=== PATIENT | male | born 1960 | race Caucasian/White ===

== ENCOUNTER 2019-11-13 06:09 | Inpatient (IN) ==
[2019-11-13] MEDS ORDERED: *HR* Propofol 200 MG/20 ML VIAL IVP ONE (06:43)
[2019-11-13] MEDS ORDERED: *HR* FentaNYL (PF) 1,000 MCG/20 ML VIAL ONE (06:44)
[2019-11-13] MEDS ORDERED: *HR* Midazolam HCl 5 MG/5 ML VIAL IVP ONE (06:44)
[2019-11-13] MEDS ORDERED: Famotidine 20 MG/2 ML VIAL ONE (06:52)
[2019-11-13] MEDS ORDERED: *HR* PHENYLEPHRINE 1,000 MCG/10 ML SYRINGE IVP ONE ×2 (06:52→11:31)
[2019-11-13] MEDS ORDERED: Dexamethasone 4 MG/ML VIAL ONE (06:52)
[2019-11-13] MEDS ORDERED: *HR* Magnesium Sulfate 1 GM/2 ML VIAL ONE (06:52)
[2019-11-13] MEDS ORDERED: Lidocaine 2% Syringe 100 MG/5 ML ONE (06:53)
[2019-11-13] MEDS ORDERED: Tranexamic Acid 1,000 MG/10 ML VIAL ONE (07:03)
[2019-11-13] MEDS ORDERED: CeFAZolin Syr 2,000MG/20 ML 2,000 MG/20 ML SYRINGE IVPB ONE (07:06)
[2019-11-13] MEDS ORDERED: Albuterol 2.5 MG/3 ML NEBULIZER IH ONE (07:33)
[2019-11-13] MEDS ORDERED: Dextrose 50 % in Water (Vial) 30 ML, Sodium Bicarbonate 20 MEQ, Lidocaine 1% 5 ML, Insu... TH ONE ×3 (07:45)
[2019-11-13] MEDS ORDERED: Dextrose 50 % in Water (Vial) 30 ML, Sodium Bicarbonate 20 MEQ, Potassium Chloride 15 M... TH ONE (07:45)
[2019-11-13] MEDS ORDERED: Heparin 15,000 UNIT in 0.9 % Sodium Chloride 500 ML IV ONE (07:45)
[2019-11-13] MEDS ORDERED: Ringers Solution, Lactated 1,000 ML IVC SCH (07:45)
[2019-11-13] MEDS ORDERED: Insulin Human Regular 100 UNIT in 0.9 % Sodium Chloride 100 ML IV PRN (07:45)
[2019-11-13] MEDS ORDERED: Norepinephrine 4 MG in 0.9 % Sodium Chloride 250 ML IVC PRN (07:45)
[2019-11-13 08:06] LABS: ABG Base Excess -1 mEq/L (-2 to 3); ABG Chloride 102 mEq/L (98-107); ABG Glucose 107 mg/dL (60-95); ABG HCO3 27 mEq/L (21-27); ABG Oxygen Saturation 100 % (95-98); ABG PCO2 55 mmHg (35-45); ABG PH 7.29 pH Units (7.32-7.45); ABG PO2 216 mmHg (85-104); ABG TCO2 28 mEq/L (20-26)
[2019-11-13] MEDS ORDERED: *HR* Heparin 10,000 UNIT/10 ML VIAL IV ONE (08:12)
[2019-11-13] MEDS ORDERED: *HR* Magnesium Sulfate 2 GM/50 ML PIGGYBACK IVPB ONE (08:12)
[2019-11-13] MEDS ORDERED: Tranexamic Acid 1,000 MG/10 ML VIAL IVP ONE (08:12)
[2019-11-13] MEDS ORDERED: *HR* Phenylephrine 10 MG/ML VIAL IVC ONE (08:12)
[2019-11-13] MEDS ORDERED: Albumin Human 25% 25 GM/100 ML IV.SOLN IV ONE (08:12)
[2019-11-13] MEDS ORDERED: Mannitol 25% vial 12.5 GM/50 ML VIAL IVP ONE (08:12)
[2019-11-13] MEDS ORDERED: Lidocaine 2% Syringe 100 MG/5 ML IV ONE (08:12)
[2019-11-13] MEDS ORDERED: Heparin 1,000 UNITS/500 mL IV.SOLN IVC ONE (08:12)
[2019-11-13] MEDS ORDERED: D5% in Water 250 ML IV BAG IV ONE (08:12)
[2019-11-13] MEDS ORDERED: *HR* Rocuronium Bromide 50 MG/5 ML VIAL ONE ×3 (08:56→09:21)
[2019-11-13] MEDS ORDERED: Chlorhexidine Rinse 15 ML MOUTHWASH MM SCH (09:00)
[2019-11-13 09:22] LABS: ABG Base Excess -3 mEq/L (-2 to 3); ABG Chloride 105 mEq/L (98-107); ABG Glucose 109 mg/dL (60-95); ABG HCO3 23 mEq/L (21-27); ABG Ionized Calcium 1.18 mmol/L (1.15-1.35); ABG Oxygen Saturation 99 % (95-98); ABG PCO2 46 mmHg (35-45); ABG PH 7.31 pH Units (7.32-7.45); ABG PO2 133 mmHg (85-104); ABG TCO2 25 mEq/L (20-26)
[2019-11-13] MEDS ORDERED: Protamine Sulfate 250 MG/25 ML VIAL IVP ONE (09:33)
[2019-11-13] MEDS ORDERED: Calcium Gluconate 1,000 MG/10 ML VIAL ONE (09:33)
[2019-11-13 10:25] LABS: ABG Base Excess 0 mEq/L (-2 to 3); ABG Chloride 102 mEq/L (98-107); ABG Glucose 137 mg/dL (60-95); ABG HCO3 25 mEq/L (21-27); ABG Ionized Calcium 1.14 mmol/L (1.15-1.35); ABG Oxygen Saturation 100 % (95-98); ABG PCO2 38 mmHg (35-45); ABG PH 7.41 pH Units (7.32-7.45); ABG PO2 444 mmHg (85-104); ABG TCO2 26 mEq/L (20-26)
[2019-11-13] MEDS ORDERED: Albumin Human 5% 50.0 GM/1,000 ML VIAL ONE (11:00)
[2019-11-13] MEDS ORDERED: 0.9 % Sodium Chloride 500 ML ONE (11:00)
[2019-11-13 11:08] LABS: ABG Base Excess 0 mEq/L (-2 to 3); ABG Chloride 101 mEq/L (98-107); ABG Glucose 141 mg/dL (60-95); ABG HCO3 25 mEq/L (21-27); ABG Ionized Calcium 1.16 mmol/L (1.15-1.35); ABG Oxygen Saturation 100 % (95-98); ABG PCO2 42 mmHg (35-45); ABG PH 7.39 pH Units (7.32-7.45); ABG PO2 351 mmHg (85-104); ABG TCO2 27 mEq/L (20-26)
[2019-11-13] MEDS ORDERED: Ondansetron 4 MG/2 ML VIAL ONE (11:49)
[2019-11-13 11:53] LABS: ABG Base Excess -3 mEq/L (-2 to 3); ABG Chloride 104 mEq/L (98-107); ABG Glucose 128 mg/dL (60-95); ABG HCO3 24 mEq/L (21-27); ABG Ionized Calcium 1.27 mmol/L (1.15-1.35); ABG Oxygen Saturation 98 % (95-98); ABG PCO2 54 mmHg (35-45); ABG PH 7.27 pH Units (7.32-7.45); ABG PO2 123 mmHg (85-104); ABG TCO2 26 mEq/L (20-26)
[2019-11-13] MEDS ORDERED: Acetaminophen 650 MG RECTAL SUPP RC PRN (12:27)
[2019-11-13] MEDS ORDERED: Ondansetron 4 MG/2 ML VIAL IVP PRN (12:27)
[2019-11-13] MEDS ORDERED: *HR* Dextrose 50 % in Water (Syg) 50 ML SYRINGE IVP PRN (12:27)
[2019-11-13] MEDS ORDERED: Acetaminophen 325 MG TABLET PO PRN (12:27)
[2019-11-13] MEDS ORDERED: Calcium Gluconate 1gm/50mL 1 GM/50 ML BAG IVPB PRN (12:27)
[2019-11-13] MEDS ORDERED: Insulin Regular, Human 100 UNIT/ML IV PRN (12:27)
[2019-11-13] MEDS ORDERED: Potassium Chloride 40 MEQ/200 ML BAG IVPB PRN (12:27)
[2019-11-13] MEDS ORDERED: Naloxone 0.4 MG/ML INJ IVP PRN (12:27)
[2019-11-13] MEDS ORDERED: 0.9 % Sodium Chloride w KCl 20 MEQ/1,000 ML MLS IVC SCH (12:30)
[2019-11-13] MEDS: Norepinephrine 4 MG in 0.9 % Sodium Chloride 250 ML IVC SCH (13:05)
[2019-11-13] MEDS: Insulin Human Regular 100 UNIT in 0.9 % Sodium Chloride 100 ML IVC SCH (13:20)
[2019-11-13 13:22] LABS: ABG Base Excess 1 mEq/L (-2 to 3); ABG HCO3 28 mEq/L (21-27); ABG Oxygen Saturation 94 % (95-98); ABG PCO2 51 mmHg (35-45); ABG PH 7.34 pH Units (7.32-7.45); ABG PO2 77 mmHg (85-104); ABG TCO2 29 mEq/L (20-26); Blood Gas Modality VC; Blood Gas VT 600 cc
[2019-11-13 13:35] LABS: Basophils # 0.1 K/mcL (0.0-0.2); Basophils % 0.5 %; Eosinophils # 0.2 K/mcL (0.0-0.6); Hematocrit 35.8 % (37.5-50.1); Hemoglobin 12.5 g/dL (12.9-16.9); Immature Granulocytes % 1.2 % (0-4); Lymphocytes # 1.8 K/mcL (0.6-4.6); Lymphocytes % 12.2 %; Mean Corpuscular HGB Conc 34.9 g/dL (31.6-35.5); Mean Corpuscular Hemoglobin 31.7 pg (28.0-33.3); Mean Corpuscular Volume 90.9 fL (83.0-100.0); Monocytes % 6.9 %; Neutrophils # 11.8 K/mcL (1.6-8.9); Platelet Count 139 K/mcL (140-400); Red Blood Count 3.94 M/mcL (4.19-5.50); Red Cell Distribution Width 13.4 % (11.5-14.5); Segmented Neutrophils % 78.2 %
[2019-11-13 13:39] LABS: White Blood Count 15.1 K/mcL (4.3-11.1)
[2019-11-13] MEDS: niCARdipine 20 MG in 0.9 % Sodium Chloride 192 ML IVC SCH (13:40)
[2019-11-13 13:47] LABS: INR 1.2
[2019-11-13 13:50] LABS: Activated Partial Thrombo Time 33.6 Seconds (26.0-36.0)
[2019-11-13 13:52] LABS: BUN/Creatinine Ratio 13 (6-26); Blood Urea Nitrogen 13 mg/dL (8-23); Calcium 8.6 mg/dL (8.6-10.3); Carbon Dioxide 26 mEq/L (23-29); Chloride 109 mEq/L (98-107); Glucose 154 mg/dL (70-105); Magnesium 2.7 mg/dL (1.6-2.6); Osmolality,Calculated 291 (280-300); Potassium 3.9 mEq/L (3.5-5.1); Sodium 139 mEq/L (136-145); eGFR For African Americans > 60 (> 60); eGFR For Non-African Americans > 60 (> 60)
[2019-11-13 13:56] LABS: Prothrombin Time 13.6 Seconds (9.4-12.1)
[2019-11-13] MEDS: Pantoprazole 40 MG VIAL IVP SCH (13:58)
[2019-11-13] MEDS: *HR* FentaNYL (PF) 100 MCG/2 ML VIAL IVP PRN ×2 (14:01→16:53)
[2019-11-13 14:44] LABS: Estimated Average Glucose 114 mg/dl
[2019-11-13] MEDS: *HR* OxyCODONE/APAP 5/325 TABLET PO PRN ×2 (15:54→21:23)
[2019-11-13 16:38] LABS: ABG Base Excess -2 mEq/L (-2 to 3); ABG HCO3 26 mEq/L (21-27); ABG Oxygen Saturation 97 % (95-98); ABG PCO2 53 mmHg (35-45); ABG PH 7.29 pH Units (7.32-7.45); ABG PO2 100 mmHg (85-104); ABG TCO2 27 mEq/L (20-26); Blood Gas Modality CPAP/PS; Blood Gas Pressure Support 10 cm H2O
[2019-11-13] MEDS: Metoclopramide 10 MG/2 ML VIAL IVP SCH ×2 (17:35→23:25)
[2019-11-13] MEDS: Ketorolac 15 MG/ML VIAL IVP SCH ×2 (17:35→23:25)
[2019-11-13 18:36] LABS: ABG Base Excess -3 mEq/L (-2 to 3); ABG HCO3 25 mEq/L (21-27); ABG Oxygen Saturation 91 % (95-98); ABG PCO2 52 mmHg (35-45); ABG PH 7.28 pH Units (7.32-7.45); ABG PO2 69 mmHg (85-104); ABG TCO2 26 mEq/L (20-26)
[2019-11-13] MEDS: Chlorhexidine Rinse 15 ML MOUTHWASH MM SCH (21:24)
[2019-11-14] MEDS: *HR* FentaNYL (PF) 100 MCG/2 ML VIAL IVP PRN (04:15)
[2019-11-14] MEDS: *HR* OxyCODONE/APAP 5/325 TABLET PO PRN ×5 (04:36→23:20)
[2019-11-14 04:39] LABS: Basophils % 0.2 %; Hematocrit 39.7 % (37.5-50.1); Immature Granulocytes % 0.6 % (0-4); Lymphocytes # 2.1 K/mcL (0.6-4.6); Lymphocytes % 10.5 %; Mean Corpuscular HGB Conc 35.3 g/dL (31.6-35.5); Mean Corpuscular Hemoglobin 31.9 pg (28.0-33.3); Mean Corpuscular Volume 90.4 fL (83.0-100.0); Mean Platelet Volume 11.4 fL (9.4-12.4); Monocytes # 2.1 K/mcL (0.0-1.3); Monocytes % 10.5 %; Platelet Count 147 K/mcL (140-400); Red Blood Count 4.39 M/mcL (4.19-5.50); Red Cell Distribution Width 14.1 % (11.5-14.5); Segmented Neutrophils % 78.2 %; White Blood Count 20.4 K/mcL (4.3-11.1)
[2019-11-14 04:46] LABS: INR 1.1; Prothrombin Time 12.7 Seconds (9.4-12.1)
[2019-11-14 04:58] LABS: BUN/Creatinine Ratio 19 (6-26); Blood Urea Nitrogen 21 mg/dL (8-23); Calcium 8.8 mg/dL (8.6-10.3); Carbon Dioxide 23 mEq/L (23-29); Chloride 105 mEq/L (98-107); Glucose 149 mg/dL (70-105); Magnesium 2.2 mg/dL (1.6-2.6); Osmolality,Calculated 292 (280-300); Potassium 4.7 mEq/L (3.5-5.1); Sodium 138 mEq/L (136-145); eGFR For African Americans > 60 (> 60); eGFR For Non-African Americans > 60 (> 60)
[2019-11-14] MEDS: Metoclopramide 10 MG/2 ML VIAL IVP SCH ×4 (05:03→23:16)
[2019-11-14] MEDS: Ketorolac 15 MG/ML VIAL IVP SCH ×4 (05:04→23:16)
[2019-11-14 05:22] LABS: ABG Base Excess -4 mEq/L (-2 to 3); ABG HCO3 22 mEq/L (21-27); ABG Oxygen Saturation 91 % (95-98); ABG PCO2 39 mmHg (35-45); ABG PH 7.35 pH Units (7.32-7.45); ABG PO2 63 mmHg (85-104); ABG TCO2 23 mEq/L (20-26); Blood Gas Modality 15LPM
[2019-11-14] MEDS ORDERED: Aspirin 81 MG TAB.CHEW PO ONE (06:00)
[2019-11-14] MEDS: Furosemide 20 MG/2 ML VIAL IVP SCH ×2 (08:58→17:15)
[2019-11-14] MEDS: Pantoprazole 40 MG VIAL IVP SCH (08:58)
[2019-11-14] MEDS: Chlorhexidine Rinse 15 ML MOUTHWASH MM SCH ×2 (08:58→19:36)
[2019-11-14] MEDS: Aspirin Enteric Coated 81 MG Tablet PO SCH (08:58)
[2019-11-14] MEDS ORDERED: *HR* LORazepam 2 MG/ML VIAL IVP PRN (09:03)
[2019-11-14] MEDS ORDERED: *HR* FentaNYL (PF) 100 MCG/2 ML VIAL IVP PRN (09:04)
[2019-11-14] MEDS: niCARdipine 20 MG in 0.9 % Sodium Chloride 192 ML IVC SCH (13:21)
[2019-11-14] MEDS: Norepinephrine 4 MG in 0.9 % Sodium Chloride 250 ML IVC SCH (13:22)
[2019-11-14] MEDS: Insulin Human Regular 100 UNIT in 0.9 % Sodium Chloride 100 ML IVC SCH (13:22)
[2019-11-14] MEDS: Insulin LISPRO 300 UNITS/3 ML VIAL SQ SCH (16:37)
[2019-11-14 16:50] LABS: ABG Base Excess 1 mEq/L (-2 to 3); ABG HCO3 25 mEq/L (21-27); ABG Oxygen Saturation 90 % (95-98); ABG PCO2 40 mmHg (35-45); ABG PH 7.41 pH Units (7.32-7.45); ABG PO2 58 mmHg (85-104); ABG TCO2 26 mEq/L (20-26)
[2019-11-14] MEDS: *HR* Heparin 5,000 UNIT/ML VIAL SQ SCH (17:15)
[2019-11-15] MEDS: *HR* OxyCODONE/APAP 5/325 TABLET PO PRN ×4 (03:16→20:10)
[2019-11-15 04:14] LABS: Basophils # 0.1 K/mcL (0.0-0.2); Basophils % 0.5 %; Eosinophils # 0.1 K/mcL (0.0-0.6); Eosinophils % 0.5 %; Immature Granulocytes % 0.5 % (0-4); Lymphocytes # 3.2 K/mcL (0.6-4.6); Lymphocytes % 23.9 %; Mean Corpuscular HGB Conc 35.1 g/dL (31.6-35.5); Mean Corpuscular Hemoglobin 32.3 pg (28.0-33.3); Mean Platelet Volume 11.3 fL (9.4-12.4); Monocytes # 1.5 K/mcL (0.0-1.3); Monocytes % 11.6 %; Neutrophils # 8.3 K/mcL (1.6-8.9); Platelet Count 104 K/mcL (140-400); Red Blood Count 4.02 M/mcL (4.19-5.50); Red Cell Distribution Width 13.9 % (11.5-14.5); White Blood Count 13.2 K/mcL (4.3-11.1)
[2019-11-15 04:35] LABS: BUN/Creatinine Ratio 29 (6-26); Blood Urea Nitrogen 29 mg/dL (8-23); Calcium 8.8 mg/dL (8.6-10.3); Carbon Dioxide 25 mEq/L (23-29); Chloride 106 mEq/L (98-107); Glucose 102 mg/dL (70-105); Osmolality,Calculated 288 (280-300); Potassium 4.1 mEq/L (3.5-5.1); Sodium 136 mEq/L (136-145); eGFR For African Americans > 60 (> 60); eGFR For Non-African Americans > 60 (> 60)
[2019-11-15] MEDS: Metoclopramide 10 MG/2 ML VIAL IVP SCH ×4 (05:49→16:58)
[2019-11-15] MEDS: Ketorolac 15 MG/ML VIAL IVP SCH ×4 (05:49→16:58)
[2019-11-15] MEDS: *HR* Heparin 5,000 UNIT/ML VIAL SQ SCH ×2 (05:55→16:57)
[2019-11-15] MEDS: Chlorhexidine Rinse 15 ML MOUTHWASH MM SCH ×2 (08:23→20:11)
[2019-11-15] MEDS: Aspirin Enteric Coated 81 MG Tablet PO SCH (08:23)
[2019-11-15] MEDS: Furosemide 20 MG/2 ML VIAL IVP SCH ×2 (08:24→16:58)
[2019-11-15] MEDS: Pantoprazole 40 MG VIAL IVP SCH (08:24)
[2019-11-15] MEDS: Insulin LISPRO 300 UNITS/3 ML VIAL SQ SCH ×3 (08:24→16:57)
[2019-11-15] MEDS ORDERED: Insulin Regular, Human 100 UNIT/ML IV PRN (11:47)
[2019-11-15] MEDS ORDERED: Acetaminophen 325 MG TABLET PO PRN (11:47)
[2019-11-15] MEDS ORDERED: Ondansetron 4 MG/2 ML VIAL IVP PRN (11:47)
[2019-11-15] MEDS ORDERED: Nitroglycerin 0.4 MG TAB.SUBL SL PRN (11:47)
[2019-11-15] MEDS ORDERED: *HR* LORazepam 2 MG/ML VIAL IVP PRN (11:47)
[2019-11-15] MEDS ORDERED: *HR* Dextrose 50 % in Water (Syg) 50 ML SYRINGE IVP PRN (11:47)
[2019-11-15] MEDS ORDERED: Naloxone 0.4 MG/ML INJ IVP PRN (11:47)
[2019-11-15] MEDS: Nicotine 21 MG PATCH.TD24 TD SCH (15:54)
[2019-11-16] MEDS: Metoclopramide 10 MG/2 ML VIAL IVP SCH ×4 (00:02→17:09)
[2019-11-16] MEDS: Ketorolac 15 MG/ML VIAL IVP SCH ×5 (00:02→23:54)
[2019-11-16] MEDS: *HR* OxyCODONE/APAP 5/325 TABLET PO PRN ×4 (00:02→21:12)
[2019-11-16] MEDS: *HR* Heparin 5,000 UNIT/ML VIAL SQ SCH ×2 (06:17→18:05)
[2019-11-16] MEDS: Insulin LISPRO 300 UNITS/3 ML VIAL SQ SCH ×3 (07:39→17:39)
[2019-11-16] MEDS: Pantoprazole 40 MG VIAL IVP SCH (08:36)
[2019-11-16] MEDS: Furosemide 20 MG/2 ML VIAL IVP SCH ×2 (08:36→17:09)
[2019-11-16] MEDS: Chlorhexidine Rinse 15 ML MOUTHWASH MM SCH ×2 (08:37→21:12)
[2019-11-16] MEDS: Aspirin Enteric Coated 81 MG Tablet PO SCH (08:37)
[2019-11-16] MEDS: Nicotine 21 MG PATCH.TD24 TD SCH (08:37)
[2019-11-17] MEDS: *HR* Heparin 5,000 UNIT/ML VIAL SQ SCH (06:09)
[2019-11-17] MEDS: Ketorolac 15 MG/ML VIAL IVP SCH (06:09)
[2019-11-17 07:12] VITALS: BP 123/75
[2019-11-17] MEDS: Insulin LISPRO 300 UNITS/3 ML VIAL SQ SCH (08:10)
[2019-11-17] MEDS: Chlorhexidine Rinse 15 ML MOUTHWASH MM SCH (08:17)
[2019-11-17] MEDS: Aspirin Enteric Coated 81 MG Tablet PO SCH (08:17)
[2019-11-17] MEDS: Nicotine 21 MG PATCH.TD24 TD SCH (08:17)
[2019-11-17] MEDS: Pantoprazole 40 MG VIAL IVP SCH (08:17)
== END 2019-11-17 09:15 | disposition home or self-care (01) | DRG 235 ==
LOC: SAMDAY 06:09 → ICNU 10:52 → 2NNU 11-16 20:16
PROVIDERS: ADMIT Thoracic Surgery (Cardiothoracic Vascular Surgery); ATTEND Thoracic Surgery (Cardiothoracic Vascular Surgery)

== ENCOUNTER 2019-11-19 00:25 | Inpatient (IN) ==
[2019-11-19] MEDS ORDERED: Isovue-370 500 ML BOTTLE IVP ONE (00:38)
[2019-11-19 00:50] LABS: Basophils % 0.6 %; Eosinophils # 0.3 K/mcL (0.0-0.6); Hematocrit 38.2 % (37.5-50.1); Hemoglobin 12.9 g/dL (12.9-16.9); Immature Granulocytes % 0.4 % (0-4); Lymphocytes # 0.7 K/mcL (0.6-4.6); Lymphocytes % 10.2 %; Mean Corpuscular HGB Conc 33.8 g/dL (31.6-35.5); Mean Corpuscular Hemoglobin 31.5 pg (28.0-33.3); Mean Corpuscular Volume 93.4 fL (83.0-100.0); Mean Platelet Volume 10.8 fL (9.4-12.4); Monocytes # 0.9 K/mcL (0.0-1.3); Monocytes % 14.1 %; Neutrophils # 4.7 K/mcL (1.6-8.9); Platelet Count 201 K/mcL (140-400); Red Blood Count 4.09 M/mcL (4.19-5.50); Red Cell Distribution Width 13.8 % (11.5-14.5); Segmented Neutrophils % 70.7 %; White Blood Count 6.7 K/mcL (4.3-11.1)
[2019-11-19 01:01] LABS: INR 1.1; Prothrombin Time 12.8 Seconds (9.4-12.1)
[2019-11-19 01:03] LABS: Activated Partial Thrombo Time 23.9 Seconds (26.0-36.0)
[2019-11-19 01:12] LABS: Alanine Aminotransferase 21 Units/L (7-52); Albumin 3.6 g/dL (3.5-5.7); Albumin/Globulin Ratio 1.4 (1.1-2.2); Alkaline Phosphatase 46 Units/L (34-104); Aspartate Amino Transferase 44 Units/L (13-39); BUN/Creatinine Ratio 20 (6-26); Bilirubin,Direct 0.2 mg/dL (0.0-0.2); Bilirubin,Indirect 0.7 mg/dL (0.0-1.0); Bilirubin,Total 0.9 mg/dL (0.3-1.0); Blood Urea Nitrogen 18 mg/dL (8-23); Calcium 8.8 mg/dL (8.6-10.3); Carbon Dioxide 23 mEq/L (23-29); Chloride 103 mEq/L (98-107); Globulin 2.6 g/dL (2.4-3.5); Glucose 109 mg/dL (70-105); Osmolality,Calculated 284 (280-300); Potassium 3.1 mEq/L (3.5-5.1); Sodium 136 mEq/L (136-145); Total Protein 6.2 g/dL (6.4-8.9); eGFR For African Americans > 60 (> 60); eGFR For Non-African Americans > 60 (> 60)
[2019-11-19 02:16] LABS: Bilirubin,Urine Negative (Negative); Blood,Urine Negative (Negative); Clarity,Urine Clear (Clear); Color,Urine Yellow (Yellow); Glucose,Urine (UA) Normal (Normal); Ketones,Urine 15 mg/dL (Negative); Leukocyte Esterase,Urine Negative (Negative); Nitrite,Urine Negative (Negative); Protein,Urine 30 mg/dL (Neg-Trace); Specific Gravity,Urine > 1.030 (1.010-1.025); Urobilinogen,Urine Normal (Normal)
[2019-11-19 02:19] LABS: Bacteria,Urine None Seen per hpf (None-Few); Hyaline Casts,Urine None Seen per lpf (None-Few); Squamous Epithelial Cell,Urine Many per lpf (None-Few)
[2019-11-19] MEDS ORDERED: Piperacillin/Tazobactam 3.375 GM in 0.9 % Sodium Chloride Mini Bag 100 ML IVPB ONE (02:45)
[2019-11-19] MEDS ORDERED: *HR* Heparin 5,000 UNIT/ML VIAL IVP PRN ×2 (02:46)
[2019-11-19] MEDS ORDERED: *HR* Heparin 5,000 UNIT/ML VIAL IVP ONE (02:46)
[2019-11-19] MEDS ORDERED: Heparin 25,000 UNIT/250 ML D5W 25,000 UNIT/250 ML IV.SOLN IVC SCH (03:00)
[2019-11-19] MEDS ORDERED: *HR* OxyCODONE/APAP 5/325 TABLET PO PRN (03:59)
[2019-11-19] MEDS ORDERED: Nitroglycerin 0.4 MG TAB.SUBL SL PRN (03:59)
[2019-11-19] MEDS ORDERED: Ondansetron 4 MG/2 ML VIAL IVP PRN (04:00)
[2019-11-19] MEDS ORDERED: Naloxone 0.4 MG/ML INJ IVP PRN (04:00)
[2019-11-19 05:07] LABS: Basophils % 0.7 %; Eosinophils # 0.1 K/mcL (0.0-0.6); Eosinophils % 1.6 %; Hematocrit 35.6 % (37.5-50.1); Hemoglobin 12.4 g/dL (12.9-16.9); Immature Granulocytes % 0.7 % (0-4); Lymphocytes # 0.9 K/mcL (0.6-4.6); Lymphocytes % 15.7 %; Mean Corpuscular HGB Conc 34.8 g/dL (31.6-35.5); Mean Corpuscular Hemoglobin 31.6 pg (28.0-33.3); Mean Corpuscular Volume 90.8 fL (83.0-100.0); Mean Platelet Volume 10.8 fL (9.4-12.4); Monocytes # 0.8 K/mcL (0.0-1.3); Monocytes % 14.7 %; Neutrophils # 3.7 K/mcL (1.6-8.9); Platelet Count 195 K/mcL (140-400); Red Blood Count 3.92 M/mcL (4.19-5.50); Red Cell Distribution Width 13.7 % (11.5-14.5); Segmented Neutrophils % 66.6 %; White Blood Count 5.6 K/mcL (4.3-11.1)
[2019-11-19 05:08] LABS: INR 1.2; Prothrombin Time 13.7 Seconds (9.4-12.1)
[2019-11-19 05:11] LABS: Activated Partial Thrombo Time 24.3 Seconds (26.0-36.0); Heparin anti-factor XA UFH 0.01 IU/mL (0.30-0.70)
[2019-11-19 05:23] LABS: BUN/Creatinine Ratio 20 (6-26); Blood Urea Nitrogen 18 mg/dL (8-23); Calcium 8.4 mg/dL (8.6-10.3); Carbon Dioxide 22 mEq/L (23-29); Chloride 104 mEq/L (98-107); Glucose 113 mg/dL (70-105); Magnesium 2.1 mg/dL (1.6-2.6); Osmolality,Calculated 285 (280-300); Potassium 2.9 mEq/L (3.5-5.1); Sodium 136 mEq/L (136-145); eGFR For African Americans > 60 (> 60); eGFR For Non-African Americans > 60 (> 60)
[2019-11-19] MEDS: 0.9 % Sodium Chloride 1,000 ML IVC SCH ×2 (07:25→16:26)
[2019-11-19] MEDS: Nicotine 21 MG PATCH.TD24 TD SCH (07:38)
[2019-11-19] MEDS ORDERED: Piperacillin/Tazobactam 3.375 GM in 0.9 % Sodium Chloride Mini Bag 100 ML IVPB SCH ×2 (09:00→10:00)
[2019-11-19] MEDS: Aspirin Enteric Coated 81 MG Tablet PO SCH (09:56)
[2019-11-19] MEDS: Cholecalciferol (D-3) 1,000 UNIT (25MCG) TABLET PO SCH (09:56)
[2019-11-19 11:49] LABS: Adenovirus F 40/41 PCR Not detected (Not detect); Astrovirus PCR Not detected (Not detect); C.difficile Toxin A/B Gene PCR Not detected (Not detect); Campylobacter by PCR Not detected (Not detect); Cryptosporidium by PCR Not detected (Not detect); Cyclospora cayetanensis PCR Not detected (Not detect); E. coli O157 by PCR Not detected (Not detect); Entamoeba histolytica PCR Not detected (Not detect); Enteroaggregative E.coli(EAEC) Not detected (Not detect); Enteropathogenic E.coli(EPEC) Not detected (Not detect); Enterotoxigenic E.coli (ETEC) Not detected (Not detect); Giardia lamblia PCR Not detected (Not detect); Norovirus GI/GII PCR Not detected (Not detect); Plesiomonas shigelloides PCR Not detected (Not detect); Rotavirus A PCR Not detected (Not detect); Salmonella PCR Not detected (Not detect); Sapovirus PCR Not detected (Not detect); Shig/EnteroinvasiveE coli EIEC Not detected (Not detect); Shigalike tox-prod E coli STEC Not detected (Not detect); Vibrio PCR Not detected (Not detect); Vibrio cholerae PCR Not detected (Not detect); Yersinia enterocolitica PCR DETECTED (Not detect)
[2019-11-19] MEDS ORDERED: cefTRIAXone 1,000 MG in 0.9 % Sodium Chloride Mini Bag 100 ML IVPB SCH (13:00)
[2019-11-19] MEDS: cefTRIAXone 1,000 MG in 0.9 % Sodium Chloride Mini Bag 100 ML IVPB SCH (16:28)
[2019-11-19] MEDS: *HR* Enoxaparin 100 MG/ML SYRINGE SQ SCH (19:16)
[2019-11-20] MEDS: *HR* Enoxaparin 100 MG/ML SYRINGE SQ SCH ×2 (05:45→16:54)
[2019-11-20 06:24] LABS: Basophils % 0.6 %; Eosinophils # 0.1 K/mcL (0.0-0.6); Eosinophils % 1.2 %; Hematocrit 34.3 % (37.5-50.1); Hemoglobin 11.5 g/dL (12.9-16.9); Immature Granulocytes % 0.6 % (0-4); Lymphocytes # 1.4 K/mcL (0.6-4.6); Lymphocytes % 20.8 %; Mean Corpuscular HGB Conc 33.5 g/dL (31.6-35.5); Mean Corpuscular Hemoglobin 31.6 pg (28.0-33.3); Mean Corpuscular Volume 94.2 fL (83.0-100.0); Mean Platelet Volume 10.6 fL (9.4-12.4); Monocytes # 0.9 K/mcL (0.0-1.3); Monocytes % 13.7 %; Neutrophils # 4.2 K/mcL (1.6-8.9); Platelet Count 192 K/mcL (140-400); Red Blood Count 3.64 M/mcL (4.19-5.50); Segmented Neutrophils % 63.1 %; White Blood Count 6.7 K/mcL (4.3-11.1)
[2019-11-20 06:50] LABS: BUN/Creatinine Ratio 17 (6-26); Blood Urea Nitrogen 15 mg/dL (8-23); Calcium 8.5 mg/dL (8.6-10.3); Carbon Dioxide 21 mEq/L (23-29); Chloride 106 mEq/L (98-107); Glucose 112 mg/dL (70-105); Osmolality,Calculated 288 (280-300); Potassium 2.6 mEq/L (3.5-5.1); Sodium 138 mEq/L (136-145); eGFR For African Americans > 60 (> 60); eGFR For Non-African Americans > 60 (> 60)
[2019-11-20] MEDS: Aspirin Enteric Coated 81 MG Tablet PO SCH (08:06)
[2019-11-20] MEDS: Cholecalciferol (D-3) 1,000 UNIT (25MCG) TABLET PO SCH (08:06)
[2019-11-20] MEDS: cefTRIAXone 1,000 MG in 0.9 % Sodium Chloride Mini Bag 100 ML IVPB SCH (08:07)
[2019-11-20] MEDS: Nicotine 21 MG PATCH.TD24 TD SCH (08:07)
[2019-11-21] MEDS: *HR* Enoxaparin 100 MG/ML SYRINGE SQ SCH (06:09)
[2019-11-21 06:24] LABS: Basophils % 0.6 %; Eosinophils # 0.3 K/mcL (0.0-0.6); Eosinophils % 5.1 %; Hematocrit 34.4 % (37.5-50.1); Hemoglobin 11.6 g/dL (12.9-16.9); Immature Granulocytes % 0.4 % (0-4); Lymphocytes # 1.8 K/mcL (0.6-4.6); Lymphocytes % 27.3 %; Mean Corpuscular HGB Conc 33.7 g/dL (31.6-35.5); Mean Corpuscular Hemoglobin 30.9 pg (28.0-33.3); Mean Corpuscular Volume 91.7 fL (83.0-100.0); Mean Platelet Volume 10.6 fL (9.4-12.4); Monocytes # 0.8 K/mcL (0.0-1.3); Monocytes % 11.6 %; Neutrophils # 3.7 K/mcL (1.6-8.9); Platelet Count 227 K/mcL (140-400); Red Blood Count 3.75 M/mcL (4.19-5.50); Red Cell Distribution Width 13.9 % (11.5-14.5); White Blood Count 6.7 K/mcL (4.3-11.1)
[2019-11-21 06:42] LABS: BUN/Creatinine Ratio 13 (6-26); Blood Urea Nitrogen 11 mg/dL (8-23); Calcium 8.2 mg/dL (8.6-10.3); Carbon Dioxide 22 mEq/L (23-29); Chloride 106 mEq/L (98-107); Glucose 98 mg/dL (70-105); Osmolality,Calculated 285 (280-300); Potassium 3.2 mEq/L (3.5-5.1); Sodium 138 mEq/L (136-145); eGFR For African Americans > 60 (> 60); eGFR For Non-African Americans > 60 (> 60)
[2019-11-21 06:52] LABS: Platelet Estimate Normal (Normal); Reactive Lymphocytes Present (Not Present)
[2019-11-21 08:07] VITALS: BP 137/78
[2019-11-21] MEDS: Aspirin Enteric Coated 81 MG Tablet PO SCH (08:36)
[2019-11-21] MEDS: Nicotine 21 MG PATCH.TD24 TD SCH (08:37)
[2019-11-21] MEDS: Cholecalciferol (D-3) 1,000 UNIT (25MCG) TABLET PO SCH (08:37)
[2019-11-21] MEDS: cefTRIAXone 1,000 MG in 0.9 % Sodium Chloride Mini Bag 100 ML IVPB SCH (08:37)
== END 2019-11-21 10:04 | disposition home or self-care (01) | DRG 871 ==
LOC: EMEROOARM 00:25 → 2ANU 00:25 → SUATTDRO 03:40 → 2ANU 03:48
PROVIDERS: ADMIT Internal Medicine; ATTEND Internal Medicine